=== PATIENT | male | born 1955 | race African-American/Black ===

== ENCOUNTER 2020-05-28 11:02 | Inpatient (IN) | payer OTHER ==
[~2020-05-28] VITALS: Ht 170.2 cm; Wt 67.7 kg
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
[2020-05-28 11:13] VITALS: BP 44/26
[2020-05-28 11:57] LABS: HEMOGLOBIN 12.4 gm/dL (14.0-18.0); MCHC 31.9 g/dL (28.0-37.0); MCV 106.6 fL (80.0-100.0); PLATELET COUNT 125 thou/uL (150-400); RBC 3.66 mil/uL (4.50-6.00); RDW 14.8 % (10.5-14.5); WBC 19.3 thou/uL (4.0-11.0)
[2020-05-28 12:01] LABS: URINE BLOOD 3+ (Negative); URINE CLARITY CLOUDY; URINE COLOR BROWN; URINE GLUCOSE-RANDOM* NEGATIVE (Negative); URINE KETONES NEGATIVE (Negative); URINE LEUKOCYTES-REFLEX TRACE (Negative); URINE NITRITE-REFLEX POSITIVE (Negative); URINE PROTEIN (DIPSTICK) 2+ (Negative); URINE SPECIFIC GRAVITY >= 1.030 (1.005-1.035)
[2020-05-28 12:06] LABS: ICTOTEST (BILI CONFIRMATORY) Negative (Negative); URINE BILIRUBIN NEGATIVE (Negative)
[2020-05-28 12:08] LABS: CREATININE 2.4 mg/dL (0.7-1.3); POTASSIUM 4.7 mmol/L (3.5-5.1)
[2020-05-28 12:13] LABS: AMP/METHAMP Negative (Negative); BARBITURATES Negative (Negative); BENZODIAZEPINES Negative (Negative); COCAINE Negative (Negative); METHADONE Negative (Negative); OPIATES Negative (Negative); PCP POSITIVE (Negative)
[2020-05-28 12:14] LABS: AMORPHOUS URATES Many /LPF (None Seen); CASTS None Seen /LPF (None Seen); SQUAMOUS None Seen /LPF (0-3); URINE RBC 3-10 Few /HPF (0-2); URINE WBC-REFLEX 0-5 Rare /HPF (0-5)
[2020-05-28 12:15] LABS: ALBUMIN 2.3 g/dL (3.4-5.0); TOTAL BILIRUBIN 1.7 mg/dL (0.2-1.0); TOTAL PROTEIN 7.2 g/dL (6.4-8.2); TROPONIN-I 0.24 ng/mL (<0.06)
[2020-05-28 12:28] LABS: ABSOLUTE NEUTROPHILS 17.4 thou/uL (1.4-8.2); ANISOCYTOSIS 1+; PLATELET ESTIMATE NORMAL
[2020-05-28 12:29] LABS: APTT 32.7 Seconds (24.5-32.8); INR 1.9; PROTIME 19.5 Seconds (9.3-11.4)
--- NOTE | 2020-05-28 14:15 | NUR ---
CONSULTED TO PLACE A STAT CENTRAL LINE FOR A PATIENT IN ER WITH SEVERE HYPOTHERMIA. ORDER NOTED AND CONSENT WAS PER MEDICAL NECESSITY. THE RIGHT JUGULAR WAS WIDLEY PATENT. A #6F TRIPLE LUMEN CENTRAL LINE WAS PLACED PER HOSPITAL POLICY AFTER A BEDSIDE TIMEOUT WAS COMPLETED. THE LINE ADVANCED WITHOUT DIFFICULTY. A STAT CHEST XRAY CONFIRMED LINE IN APPROPRIATE POSITION FOR USE. LINE BLEEDING AT SITE, DRESSING CHANGED AND PRESSURE HELD X2
[2020-05-29 04:26] LABS: ALBUMIN 2.2 g/dL (3.4-5.0); CALCIUM 8.1 mg/dL (8.5-10.1); CREATININE 2.3 mg/dL (0.7-1.3); POTASSIUM 5.1 mmol/L (3.5-5.1); TOTAL BILIRUBIN 1.6 mg/dL (0.2-1.0); TOTAL PROTEIN 6.4 g/dL (6.4-8.2)
[2020-05-29 04:30] LABS: HEMATOCRIT 37.6 % (42.0-52.0); HEMOGLOBIN 12.3 gm/dL (14.0-18.0); MCH 34.4 pg (26.0-34.0); MCHC 32.7 g/dL (28.0-37.0); MCV 105.3 fL (80.0-100.0); RBC 3.57 mil/uL (4.50-6.00); RDW 14.8 % (10.5-14.5); WBC 13.3 thou/uL (4.0-11.0)
--- NOTE | 2020-05-29 13:28 | NUR ---
PT DISCONTINUED CENTRAL LINE
--- NOTE | 2020-05-29 18:06 | NUR ---
REPORT ATTEMPTED, NO ANSWER IN CCU
--- NOTE | 2020-05-29 18:17 | NUR ---
SECOND CALL TO GIVE REPORT, NO ANSWER
[2020-05-29 20:48] VITALS: BP 146/114
[2020-05-30] VITALS (7 sets, daily range): BP systolic 110–126; BP diastolic 57–86
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
[2020-05-30 06:27] LABS: CALCIUM 8.2 mg/dL (8.5-10.1); CREATININE 2.7 mg/dL (0.7-1.3); POTASSIUM 5.2 mmol/L (3.5-5.1)
--- NOTE | 2020-05-30 07:31 | EKG ---
[facility] [place] [address] ELECTROCARDIOGRAM REPORT Name: CHANTAL LORENZANA Room #: 204-P ADM IN M.R.#: [id number] Admission: 05/28/20 Attend Phys: Lexii Ybarra MD Discharge: Date of : 51 Report #: [id number] THIS REPORT FOR: cc: FLORY - Gina family physician/PCP FLORY - Gina family physician/PCP Moe Doran MD [facility] THIS REPORT FOR: //name// [facility] ED Test Date: 2020-05-28 Test Time: 11:20:39 Pat Name: CHANTAL LORENZANA Department: Room: [facility] Gender: M Pharmaceutical Scientist: [facility] : 1955 Requested By: Jose Alberto Rios Order Number: [id number] MD: Moe Doran Measurements Intervals [place] Rate: 120 P: OR: QRS: -38 QRSD: 114 T: 6 QT: 292 QTc: 413 Interpretive Statements Artifact, suspect NSR Low voltage, extremity leads Artifact in lead(s) I,II,III,aVL,V1,V2,V3,V4,V5,V6 No previous ECG available for comparison Electronically Signed On 05-30-2020 7:31:18 RIBBON BLOCKMAKER by Moe Doran [email or web address] <ELECTRONICALLY SIGNED> By: Moe Doran MD, FACC 05/30/20 0731 1120 1120 Moe Doran MD, FAC /EPI
--- NOTE | 2020-05-30 07:32 | EKG ---
[facility] [place] [address] ELECTROCARDIOGRAM REPORT Name: CHANTAL LORENZANA Room #: 204-P ADM IN M.R.#: [id number] Admission: 05/28/20 Attend Phys: Lexii Ybarra MD Discharge: Date of : 51 Report #: [id number] THIS REPORT FOR: cc: FLORY Fuentes family physician/PCP FLORY - Gina family physician/PCP Moe Doran MD [facility] ~ THIS REPORT FOR: //name// [facility] ED Test Date: 2020-05-28 Test Time: 15:11:08 Pat Name: CHANTAL LORENZANA Department: Room: [facility] Gender: M Chef De Partie[facility] 1955 Requested By: Jose Alberto Rios Order Number: [id number] MD: Moe Doran Measurements Intervals [place] Rate: 72 P: -4 DE: 197 QRS: 164 QRSD: 95 T: 36 QT: 460 QTc: 504 Interpretive Statements Sinus rhythm Paired ventricular premature complexes Aberrant conduction of SV complex(es) Low voltage, extremity leads Nonspecific T abnrm, anterolateral leads Compared to ECG 05/28/2020 11:20:39 Ventricular premature complex(es) now present ST (T wave) deviation now present Atrial fibrillation no longer present Incomplete right bundle-branch block no longer present Electronically Signed On 05-30-2020 7:32:10 SENIOR IT RECRUITER by Moe Doran [email or web address] <ELECTRONICALLY SIGNED> By: Moe Doran MD, [facility] 05/30/20 0732 10 10 Moe Doran MD, [facility] /EPI
--- NOTE | 2020-05-30 10:28 | NUR ---
Patient admits with AMS. He has hx of substance abuse per RN. Patient mumbles. He is being placed in enhanced isolation for COVID testing. No family numbers to contact. Patient may reside with brother. Casemgt following. Will complete assessment when patient more coherant.
[2020-05-30 11:57] LABS: HEMATOCRIT 39.3 % (42.0-52.0); HEMOGLOBIN 12.3 gm/dL (14.0-18.0); MCH 34.1 pg (26.0-34.0); MCHC 31.4 g/dL (28.0-37.0); MCV 108.6 fL (80.0-100.0); RBC 3.62 mil/uL (4.50-6.00); RDW 15.3 % (10.5-14.5); WBC 19.1 thou/uL (4.0-11.0)
--- NOTE | 2020-05-30 20:36 | NUR ---
RECEIVED PT'S CARE AROUND 729; PT. ON BED; DROWSY; SR-ST ON THE MONITOR; EQUAL CHEST RISING NOTICED; CRACKLS NOTICED WITHOUT STHESTOCOPE; DURING AM ASSESSESMENT PT. AROUSABLE TO PAIN; ALERT TO PERSON; 02 SAT ABOVE 90%; RR 20; PHYSICIAN NOTIFIED DURING AM; ORDERS RECEIVED; COVID ISOLATED; WET ROOM SUPERVISOR NOTIFIED; CHARGE NOTIFIED; MRSA AND COVID SAMPLE OBTAINED; URINE SAMPLE OBTAINED; THROUGH THE AFTERNOON AWAKE; ALERT TO PERSON; REQUESTED SOMETHING TO DRINK AND EAT; PER NURSE AID REPORT PT. NOT ABLE TO EAT FOOD DUE TO CONSISTENCY; PHYSICIAN NOTIFIED; ORDERS RECEIVED; DURING THE EVENING PT. AWAKE; ALERT TO PERSON; ABLE TO ATE DINNER AFTER FIXING TRAY; COVID NEGATIVE; INFECTIONS DISEASE NURSE NOTIFIED; PHYSICIAN NOTIFIED; INCONTINENT OF STOOLS; AT SHIFT CHANGE PT. AWAKE; TRYING TO GET OUT FROM BED; ST. NEEDS TO LEAVE; EDUCATED ABOUT PLACE; UPSET; ASSESSMENT CHARGED; FOLLOWING POC; PASSED ON REPORT;
[2020-05-31] VITALS (9 sets, daily range): BP systolic 99–141; BP diastolic 65–99
--- NOTE | 2020-05-31 04:46 | NUR ---
PT CONFUSED AND TRYING TO LEAVE AT BEGINNING OF SHIFT, REORIENTED PT AND HE WAS ABLE TO STATE HIS NAME, REPOSITIONED NEEDED, INCONT OF STOOL SEVERAL TIMES THRU THE NOC, NPO FOR US OF ABD THIS AM, NO C/O PAIN, VSS, WILL CON'T TO MONITOR PER PPOC.
[2020-05-31 05:34] LABS: ALBUMIN 1.8 g/dL (3.4-5.0); CALCIUM 7.6 mg/dL (8.5-10.1); CREATININE 3.3 mg/dL (0.7-1.3); PHOSPHORUS 4.7 mg/dL (2.5-4.9); POTASSIUM 4.5 mmol/L (3.5-5.1)
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
[2020-05-31 09:03] LABS: HEMOGLOBIN 11.1 gm/dL (14.0-18.0)
[2020-05-31 09:05] LABS: HEMATOCRIT 34.2 % (42.0-52.0); MCH 34.7 pg (26.0-34.0); MCHC 32.5 g/dL (28.0-37.0); MCV 106.6 fL (80.0-100.0); RBC 3.21 mil/uL (4.50-6.00); RDW 14.8 % (10.5-14.5); WBC 18.1 thou/uL (4.0-11.0)
--- NOTE | 2020-05-31 09:43 | 2DMMODE ---
[facility] [address] [place] [address] 2 D/M-MODE ECHOCARDIOGRAM Name: CHANTAL LORENZANA Room #: 204-P ADM IN M.R.#: [id number] Admission: 05/28/20 Attend Phys: Lexii Ybarra MD Discharge: Date of : 53 Report #: [id number] THIS REPORT FOR: cc: FAM - No family physician/PCP FAM - No family physician/PCP Moustapha Wilkins MD ~ APPROVED REPORT Study performed: 05/31/2020 08:15:18 EXAM: Comprehensive 2D, Doppler, and color-flow Echocardiogram Patient Location: Bedside Room #: 204 Status: routine BSA: 1.82 HR: 84 bpm BP: 137/99 mmHg Rhythm: NSR Other Information Study Quality: Good Indications Elevated Troponin Mental status change. Echo Enhancing Agent Indication: Rule out Shunt Agent(s) / Amount(s) Used: Agitated Saline 7 cc 2D Dimensions RVDd: 36.44 mm IVSd: 11.92 (7-11mm) LVOT Diam: 17.41 (18-24mm) LVDd: 52.90 mm PWd: 9.87 (7-11mm) Ascending Ao: 29.54 (22-36mm) LVDs: 52.99 (25-40mm) Aortic Root: 26.95 mm IVC: 24.00 mm Volumes Left Atrial Volume (Systole) Single Plane 4CH: 63.71 mL Single Plane 2CH: 73.08 mL LA ESV Index: 43.00 mL/m2 Aortic Valve [facility] [address] [place] [address] 2 D/M-MODE ECHOCARDIOGRAM Name: SALOMÓNCHANTAL Room #: 204-P ADM IN M.R.#: [id number] Admission: 05/28/20 Attend Phys: Rodriguez Pereira Discharge: Date of : 51 Report #: [id number] LVOT Max P.91 mmHg LVOT Max V: 0.69 m/s Mitral Valve E/A Ratio: 2.6 MV Decel. Time: 141.59 ms MV E Max Pedrito.: 1.00 m/s MV A Pedrito.: 0.38 m/s MV PHT: 41.06 ms IVRT: 101.50 ms Pulmonary Valve PV Peak Pedrito.: 0.75 m/s PV Peak Gr.: 2.23 mmHg Pulmonary Vein P Vein S: 0.33 m/s P Vein A: 0.18 m/s P Vein D: 0.63 m/s P Vein A Dur.: 106.1 msec P Vein S/D Ratio: 0.52 Tricuspid Valve TR Peak Pedrito.: 3.30 m/s TR Peak Gr.: 43.66 mmHg PA Pressure: 59.00 mmHg Left Ventricle The left ventricle is normal size. There is severe global hypokinesis of the left ventricle. There is normal left ventricular wall thickness. Left ventricular systolic function is severely decreased. The apical thrombus is large. LVEF is 10%. Grade IV - fixed restrictive diastolic dysfunction. Right Ventricle The right ventricle is normal size. Right ventricle is mildly hypokinetic. Atria Left atrium is dilated. Interatrial septum is intact without evidence of ASD or PFO. Right atrium is dilated. Aortic Valve The aortic valve is normal in structure. Trace aortic regurgitation. Possible vegetation. There is no aortic valvular stenosis. Mitral Valve The mitral valve is normal in structure. Mitral valve leaflets are thickened. Moderate to severe mitral regurgitation No evidence of [facility] [address] [place] [address] 2 D/M-MODE ECHOCARDIOGRAM Name: CHANTAL LORENZANA Room #: 204-P ADM IN .R.#: [id number] Admission: 05/28/20 Attend Phys: Rodriguez Pereira Discharge: Date of : 51 Report #: [id number] mitral valve stenosis. Tricuspid Valve The tricuspid valve is normal in structure. There is moderate tricuspid regurgitation. Estimated PAP 59 mmHg. There is moderate pulmonary hypertension. Pulmonic Valve The pulmonary valve is normal in structure. Mild to moderate pulmonic regurgitation. Great Vessels The aortic root is normal in size. The ascending aorta is normal in size. The inferior vena cava is dilated with no inspiratory collapse. Pericardium There is no pericardial effusion. Large pleural effusion. <Conclusion> The left ventricle is normal size. Left ventricular systolic function is severely decreased. LVEF is 10%. There is severe global hypokinesis of the left ventricle. The apical thrombus is large. Left atrium is dilated. Interatrial septum is intact without evidence of ASD or PFO. Right atrium is dilated. The aortic valve is normal in structure. Trace aortic regurgitation. Possible vegetation. The mitral valve is normal in structure. Mitral valve leaflets are thickened. Moderate to severe mitral regurgitation The tricuspid valve is normal in structure. There is moderate tricuspid regurgitation. Estimated PAP 59 mmHg. There is moderate pulmonary hypertension. The pulmonary valve is normal in structure. Mild to moderate pulmonic regurgitation. [facility] [place] [address] 2 D/M-MODE ECHOCARDIOGRAM Name: CHANTAL LORENZANA Room #: 204-P ADM IN M.R.#: [id number] Admission: 05/28/20 Attend Phys: Rodriguez Pereira Discharge: Date of : 51 Report #: [id number] There is no pericardial effusion. Large pleural effusion. <ELECTRONICALLY SIGNED> By: Moustapha Wilkins MD 05/31/2043 2 2 Moustapha Wilkins MD /INF
--- NOTE | 2020-05-31 10:42 | NUR ---
Patient more alert today. Reports he lives with brother at [address] with [address] He does not have anyones phone number to call. no cell phone. Patient found wandering in yards.
[2020-05-31 16:04] LABS: MACROCYTES 2+
[2020-05-31 16:05] LABS: PLATELET COUNT 28 thou/uL (150-400)
--- NOTE | 2020-05-31 20:03 | NUR ---
ASSUMED CARE OF PT AT SHIFT CHANGE. ASSESSMENTS CHARTED. MEDS GIVEN PER AUG. PT ALERT TO SELF, CONFUSED, IMPULSIVE. NO C/O PAIN, VSS. PULLED OUT MENG AND IV. BED ALARM ON. IV TEAM PUT IN TWO NEW IVS. WILL CONTINUE TO MONITOR AND FOLLOW POC.
[2020-06-01 04:43] VITALS: BP 122/66
[2020-06-01 07:30] VITALS: BP 115/79
--- NOTE | 2020-06-01 07:51 | NUR ---
this shift started with this patient being very confused, delusional and impulsive. patient was assessed and had a bath and linen change. patient at the end of this shift pulled out his iv and may need a picc placed were he will be unable to pull it out. the bed is in a low and locked position
--- NOTE | 2020-06-01 09:34 | NUR ---
BPCI LETTER ISSUED TO PATIENT IN CONJUNCTION WITH ADMISSION PACKET GIVEN BY REGISTRATION
[2020-06-01 09:52] LABS: ALBUMIN 1.9 g/dL (3.4-5.0); CREATININE 3.4 mg/dL (0.7-1.3); PHOSPHORUS 4.2 mg/dL (2.5-4.9); POTASSIUM 4.8 mmol/L (3.5-5.1)
[2020-06-01 11:37] VITALS: BP 109/78
[2020-06-01 15:35] VITALS: BP 125/66
--- NOTE | 2020-06-01 16:10 | NUR ---
PT ALERT TO SELF WITH CONFUSION. PRN ANXIETY MED GIVEN WITH PARTIAL RELIEF. SEEN BY DR. VALENZUELA. NEW ORDERS NOTED. FALL PRECAUTION IN PLACE. NO CONCERNS AT THIS TIME.
[2020-06-01 16:18] LABS: HEMATOCRIT 34.8 % (42.0-52.0); HEMOGLOBIN 11.2 gm/dL (14.0-18.0); MCH 34.2 pg (26.0-34.0); MCHC 32.2 g/dL (28.0-37.0); MCV 106.3 fL (80.0-100.0); RBC 3.27 mil/uL (4.50-6.00); WBC 12.8 thou/uL (4.0-11.0)
[2020-06-01 16:22] LABS: CALCIUM 8.1 mg/dL (8.5-10.1); CREATININE 3.5 mg/dL (0.7-1.3)
[2020-06-01 16:30] LABS: ALBUMIN 1.7 g/dL (3.4-5.0); DIRECT BILIRUBIN 0.6 mg/dL (<0.1-0.2); TOTAL BILIRUBIN 0.7 mg/dL (0.2-1.0); TOTAL PROTEIN 5.5 g/dL (6.4-8.2)
[2020-06-01 19:30] VITALS: BP 92/70
[2020-06-02 03:50] VITALS: BP 145/88
--- NOTE | 2020-06-02 06:04 | NUR ---
PATIENT IS ALERT TO SELF, CONFUSED. FALL PRECAUTIONS ARE IN PLACE. INCONTINENT OF URINE AND BOWEL. HAS URINAL AT THE BEDSIDE. DOES NOT FOLLOW DEMANDS. REMOVED HIS NC MULTIPLE TIMES THROUGHOUT THE NIGHT. CONTINUING TO ASSES ACCORDING TO POC.
[2020-06-02 06:52] LABS: ALBUMIN 1.9 g/dL (3.4-5.0); CALCIUM 7.9 mg/dL (8.5-10.1); CREATININE 3.6 mg/dL (0.7-1.3); PHOSPHORUS 4.1 mg/dL (2.5-4.9); POTASSIUM 4.6 mmol/L (3.5-5.1)
--- NOTE | 2020-06-02 07:29 | NUR ---
0620 PATIENT MORE AGITATED AND MOVING LEGS OUT OF BED. INCONTINENT. YELLING OUT AND REMAINS DISORIENTED TO SELF. OLANZAPNE GIVEN IM. 0700 PATIENT RESTING IN BED TALKING QUIETLY AT PRESENT TIME.
[2020-06-02 07:47] VITALS: BP 151/92; BP 151/921
[2020-06-02 08:07] LABS: HAV IgM AB (ANTI-HAV IgM) Negative (Negative); HEPATITIS B SURFACE AG Negative (Negative); HEPATITIS C VIRUS AB >11.0 (0.0-0.9); HIV ANTIBODY Non Reactive (Non Reactive)
--- NOTE | 2020-06-02 14:15 | NUR ---
Patient yesterday told jobmgt he has 2 children a boy and girl ages 6,7. They live with their mom Ronak Yang. Sp with [facility] today and no missing person report. Sp with [facility] for apt complex. They report they do not have apts numbered. So #3 inaccurate. They do not have a Dani or Benitez (brother) living in complex. Sp with [facility] no missing report noted. [facility] will inquire into [address] [place] [address] if resident knows patient or relation. Casemgt following.
[2020-06-02 15:45] VITALS: BP 148/79
--- NOTE | 2020-06-02 17:54 | NUR ---
ASSESSMENT CHARTED. PT ALERT AND ORIENTED TO SELF. PRN RT TREATMENT GIVEN. IMPULSIVE WITH CARES. FALL PRECAUTION IN PLACE. VERY RESTLESS.
[2020-06-02 18:04] VITALS: BP 138/78
[2020-06-02 20:07] VITALS: BP 147/101
[2020-06-03 03:49] VITALS: BP 150/87
--- NOTE | 2020-06-03 06:10 | NUR ---
PT ALERT AND ORIENTED TO SELF. INCONTINENT OF BOWEL AND BLADDER. DENIES PAIN. ASSESSMENTS DOCUMENTED. PERIODIC EPISODE OF NSVT. WILL BRING TO CARDIOLOGY ATTENTION. NO ANY OTHER CONCERNS. WILL CONTINUE TO MONITOR.
[2020-06-03 07:45] VITALS: BP 143/69
--- NOTE | 2020-06-03 10:32 | NUR ---
WOUND CARE F/U; THE PATIENT IS UP IN THE CHAIR MOST OF THE TIME. I WAS NOT ABLE TO ASSESS THE [place] AREAS. THE WOUND UNDER THE NOSE IS STABLE AND DRY. THERE IS NO S/S OF INFECTION. NO CHANGES AT THIS TIME.
[2020-06-03 11:45] VITALS: BP 148/91
[2020-06-03 15:25] VITALS: BP 142/75
--- NOTE | 2020-06-03 16:11 | NUR ---
PT ALERT TO SELF. VERY RESTLESS THIS SHIFT. NEEDED NUMEROUS VERBAL PROMPT NOT TO TRANSFER HIMSELF. APPETITE GOOD. FALL PRECAUTION IN PLACE. NO CONCERNS AT THIS TIME.
--- NOTE | 2020-06-03 16:52 | NUR ---
patient is not in [employer] or [employer] system. Left message with Earnest. He is not in [employer] system. Left message with Azar. Patient filled a prescription at [facility] Apr 04 2020. He is allergic to pencillin. Updated RN Phys who prescribed is Dr Yvon Addison. Number listed for office not a working number.
[2020-06-03 19:40] VITALS: BP 154/64
[2020-06-04 03:50] VITALS: BP 126/83
[2020-06-04 03:51] LABS: ABSOLUTE NEUTROPHILS 10.3 thou/uL (1.4-8.2); BASOPHILS 0.3 % (0.0-2.0); EOSINOPHILS 0.1 % (0.0-3.0); HEMOGLOBIN 11.3 gm/dL (14.0-18.0); LYMPHOCYTES 7.5 % (24.0-44.0); MCH 33.8 pg (26.0-34.0); MCHC 32.2 g/dL (28.0-37.0); MCV 104.9 fL (80.0-100.0); MONOCYTES 5.5 % (1.0-8.0); PLATELET COUNT 42 thou/uL (150-400); POLYS 86.6 % (36.0-66.0); RBC 3.34 mil/uL (4.50-6.00); RDW 15.1 % (10.5-14.5); WBC 11.9 thou/uL (4.0-11.0)
[2020-06-04 04:11] LABS: CALCIUM 9.1 mg/dL (8.5-10.1); CREATININE 3.5 mg/dL (0.7-1.3); TOTAL BILIRUBIN 0.9 mg/dL (0.2-1.0); TOTAL PROTEIN 6.6 g/dL (6.4-8.2)
--- NOTE | 2020-06-04 04:16 | NUR ---
PT REMAINS CONFUSED. ORIENTED TO SELF. INCONTINENT. NO EVENTS OVERNIGHT. DENIES PAIN. VITALS STABLE. WILL CONTINUE TO MONITOR.
[2020-06-04 07:50] VITALS: BP 122/84
[2020-06-04 11:40] VITALS: BP 125/95
[2020-06-04 15:30] VITALS: BP 155/70
--- NOTE | 2020-06-04 17:45 | NUR ---
TYPICAL DAY FOR THIS UNFORTUNATE PATIENT. NSR PER TELE. DENIES CP, SOA. APPETITE BRISK. DENIES PAIN. MEDICATED ORDERED. FALL PRECAUTIONS IN PLACE; WILL CONTINUE TO FOLLOW.
[2020-06-04 20:00] VITALS: BP 138/59
[2020-06-05 04:20] VITALS: BP 105/83
[2020-06-05 04:38] LABS: CALCIUM 8.8 mg/dL (8.5-10.1); CREATININE 3.3 mg/dL (0.7-1.3); MAGNESIUM 2.1 mg/dL (1.8-2.4); PHOSPHORUS 4.4 mg/dL (2.5-4.9); TOTAL BILIRUBIN 0.8 mg/dL (0.2-1.0); TOTAL PROTEIN 6.8 g/dL (6.4-8.2)
--- NOTE | 2020-06-05 04:43 | NUR ---
PT REMAINS CONFUSED. INCONTINENT OF BOTH BOWEL AND BLADDER. OLANZAPINE STARTED LAST NIGHT. PT WAS ABLE TO REST FOR MOST OF THE NIGHT. NO NEW C/O. DENIES CHEST PAIN, NAUSEA VOMITING. WILL CONTINUE TO MONITOR.
[2020-06-05 07:50] VITALS: BP 137/84
[2020-06-05 11:30] VITALS: BP 152/96
[2020-06-05 17:10] VITALS: BP 161/72
--- NOTE | 2020-06-05 18:11 | NUR ---
TYPICAL DAY FOR THIS CONFUSED, INCONTINENT PATIENT. CAN BE BRIBED TO COOPERATE WITH COKE. WILL NOT LEAVE HIS TELE IN PLACE. PACED PER TELE WHEN ABLE TO OBTAIN. INCONTINENT OF URINE AND STOOL THIS SHIFT. FALL PRECAUTIONS IN PLACE; WILL CONTINUE TO FOLLOW.
[2020-06-05 20:15] VITALS: BP 93/76
--- NOTE | 2020-06-06 04:11 | NUR ---
Assumed pt care at 1900. Pt is alert but confused. Pt continues to yell through the night. Fall precaution in place. No sign of acute distress noted. Pt is noted to be incontinent. Assessment completed and documented. Scheduled meds administered to pt. Tolerated PO intake. Pt is stable. No acute events overnight. Continue to monitor. No further needs at this time.
[2020-06-06 06:03] VITALS: BP 142/80
[2020-06-06 08:00] VITALS: BP 142/80
[2020-06-06 08:05] VITALS: BP 124/79
[2020-06-06 11:00] VITALS: BP 106/87
[2020-06-06 15:22] LABS: ABSOLUTE NEUTROPHILS 9.8 thou/uL (1.4-8.2); BASOPHILS 0.2 % (0.0-2.0); EOSINOPHILS 0.5 % (0.0-3.0); HEMATOCRIT 34.5 % (42.0-52.0); HEMOGLOBIN 11.1 gm/dL (14.0-18.0); LYMPHOCYTES 5.4 % (24.0-44.0); MCH 33.9 pg (26.0-34.0); MCHC 32.1 g/dL (28.0-37.0); MCV 105.6 fL (80.0-100.0); MONOCYTES 6.6 % (1.0-8.0); POLYS 87.3 % (36.0-66.0); RBC 3.27 mil/uL (4.50-6.00); RDW 15.2 % (10.5-14.5); WBC 11.3 thou/uL (4.0-11.0)
[2020-06-06 15:28] LABS: CALCIUM 8.4 mg/dL (8.5-10.1); POTASSIUM 3.5 mmol/L (3.5-5.1)
[2020-06-06 15:49] LABS: PLATELET COUNT 54 thou/uL (150-400)
[2020-06-06 15:54] LABS: INR 1.3; PROTIME 13.1 Seconds (9.3-11.4)
--- NOTE | 2020-06-06 15:57 | NUR ---
PT ONLY ORIENTED TO SELF, OFTEN CALLS OUT, LOUD CURSE WORDS, NOT PHYSICALLY VIOLENT THOUGH, ASK FOR A CIGARETTE, PT GAVE AN ADDRESS FOR BROTHER "CHARLES LORENZANA" CM AWARE AND WILL SEND POLICE TO SEE IF HE LIVES THERE, DR AREVALO CAME BY BUT NEEDS DPOA, PT URINATES ON THE FLOOR AND INCONTINENT OF STOOL, EATS AND DRINKS ADEQUATELY. CONTINUES TO REMOVE OWN TELE
--- NOTE | 2020-06-06 16:14 | NUR ---
Rec medical records from [facility]. ED visits, infomation placed on chart. Requested face sheet be sent. Patient reports he lives at [address] and has a brother Johnie. He is tearful today over of another brother.
[2020-06-06 19:34] VITALS: BP 141/76
[2020-06-06 22:06] LABS: SYPHILIS AB Non Reactive (Non Reactive)
--- NOTE | 2020-06-06 22:11 | NUR ---
2145 ASSUMED CARE OF PT AFTER ARRIVAL TO FLOOR, PT ORIENTED TO PERSON ONLY AT THIS TIME AND IS CALLING OUT LOUDLY ABOUT DEMONS. BASELINE ASSESSMENT COMPLETED, PT REFUSING SCDS, FALL PRECAUTIONS IN PLACE AND PT IS PLACED NEAR NURSES STATION SECONDARY TO CONFUSION AND REPORTED ATTEMPTS TO LEAVE BED BY PREVIOUS NURSE
--- NOTE | 2020-06-07 07:03 | NUR ---
pt has settled and is resting quietly with eyes closed. After Haldol, pt allowed us to change bed and was singing to us.
[2020-06-07 08:18] VITALS: BP 98/59
[2020-06-07 14:08] LABS: ANA INTERPRETATION Negative (Negative)
[2020-06-07 16:34] VITALS: BP 132/70
--- NOTE | 2020-06-07 17:08 | NUR ---
Rec face sheet from [facility]. No emergency contact listed. Address [address] [facility] [address]. Requested [facility] inquire into residence. KC sp with casemgt and reports noone home. He sp with leasing office who reports no record of patient ever being a tenant at residence or past or present. Elderly woman lives apt alone.
--- NOTE | 2020-06-07 19:05 | NUR ---
PT IS AOX1, VSS, SLEPT MOST OF DAY. PT WILL REFUSE PO MEDS SOMETIMES. PT CURRENTLY RESTING IN BED. CALL LIGHT IN REACH, WILL CONTINUE TO MONITOR.
[2020-06-07 19:29] VITALS: BP 135/75
--- NOTE | 2020-06-08 03:35 | NUR ---
ASSUMED CARE OF PT AT 1900. PT IS A/O TO PERSON AND IS CONFUSED. PT HALLUCINATING THAT THERE ARE OTHER PEOPLE IN HIS ROOM AND WILL AT TIMES YELL OUT TO THE DELUSION. PRN ANXIETY MEDICATION GIVEN AT HS. PT IS SOA WITH EXERTION. IS IMPULSIVE AT TIMES. INCONTINENT AT TIMES WITH BOTH BOWEL AND BLADDER. USES A URINAL AT TIMES. C/O THAT HE WAS COLD THIS EVENING. BLANKETS PROVIDED AND THERMOSTAT ADJUSTED TO LEVEL OF COMFORT. VSS. SNACKS PROVIDED AT HS. AT THIS TIME PT IS LYING IN HIS BED AND APPEARS TO BE SLEEPING. FALL PRECAUTIONS ARE IN PLACE, CALL LIGHT IS WITHIN REACH. WILL CONTINUE TO MONITOR.
[2020-06-08 04:16] VITALS: BP 132/67
[2020-06-08 07:40] VITALS: BP 130/75
[2020-06-08 15:40] VITALS: BP 143/75
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
--- NOTE | 2020-06-08 18:17 | NUR ---
PT AOX1-2, SLEPT MOST OF THE DAY. FOLLOWS COMMANDS AT TIMES. INCONTINENT OF B&B, APPETITE GOOD TODAY. FALL PRECAUTIONS IN PLACE. WILL CONTINUE TO MONITOR FOR SAFETY.
[2020-06-08 19:14] VITALS: BP 137/88
--- NOTE | 2020-06-09 02:42 | NUR ---
ASSUMED PT CARE AT SHIFT CHANGE FROM DAMIR (LYNN-RN). PT IS ALERT TO SELF. PT'S VSS. NO IV IS SPRESENT. PT TAKES MEDICATION WHOLE. PT IS INCONTINENT B&B. PT URINATED ON THE FLOOR. PT DOES NOT CALL OUT APPROPRIATELY. PT IS IMPULSIVE BUT EASILY RE DIRECTABLE. PT YELLS OUT INTO THE HALLWAY. PT IS SLEEPING IN HIS ROOM. HOURLY ROUNDS DONE ON PT. WILL CONTINUE TO MONITOR.
[2020-06-09 04:21] VITALS: BP 157/96
--- NOTE | 2020-06-09 05:18 | NUR ---
I HAVE REVIEWED THE DOCUMENTATION BY EMILY MALONEY LPN AND I CONCUR WITH THE REASSESSMENT.
[2020-06-09 08:02] VITALS: BP 140/83
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
--- NOTE | 2020-06-09 16:11 | NUR ---
ON-GOING ASSESSMENT: CM REVIEWED CHART AND SPOKE WITH ATTENDING. PT REMAINS IN ENHANCED ISOLATION DUE TO COVID 19. SYED SPOKE WITH PATIENTS SISTER GISSELL WHO REPORTS SHE DOES NOT WANT PATIENT RETURNING AT ALL TO [facility] AND HAD A TERRIBLE EXPERIENCE BUT WOULD LIKE HIM TO GO SOMEWHERE FOR REHAB/SNF IF HE IS ABLE TO GET ANY STRONGER OR TOLERATE SNF. SHE STATES SHE WOULD LIKE TO TALK TO PHYSICIAN TO SEE IF HE IS A CANIDATE FOR SNF. SHE REPORTS IF PATIENT IS NEEDING HOSPICE HE LIVES ALONE AND SOMEONE IS NOT ABLE TO BE THERE WITH HIM 21/01. SHE REPORTS SHE IS UNSURE HIS CONDITION OR HOW SERIOUS IT IS IF HE NEEDS HOSPICE OR CAN DO SNF. SHE REQUEST TO SPEAK WITH DR. ALTAMIRANO. CM RELAYED INFORMATION AND CONTACT FOR PTS SISTER TO DR. ALTAMIRANO FOR HER TO CONTACT HER. SHE REPORTS IF HE IS A CANIDATE FOR SNF SHE [facility] AND [facility] CONSIDER [facility]. [facility]ED SPOKE WITH SALLY AT THE [facility] WHO REPORTS THEY DO HAVE A CONTACT WITH [facility] BUT THE [facility] WOULD HAVE TO APPROVE IT FIRST. SHE REQUEST INFORMATION BE FAXED TO THEM FOR REVIEW. CM FAXED CLINICAL TO [facility] [phone] ATTN: TIMI/DYLAN FOR REVIEW. CM ALSO FAXED CLINICAL TO DRESSER AND SPOKE WITH ADMISSIONS WHO STATES THEY WOULD REVIEW CLINICAL AND ARE ACCEPTING COVID POSTIVE RESIDENTS AT THIS TIME. SYED WILL CONTINUE TO FOLLOW.
[2020-06-09 16:14] VITALS: BP 139/98
[2020-06-09 19:15] VITALS: BP 139/87
--- NOTE | 2020-06-09 19:15 | NUR ---
PT IS CONFUSED, YELLS OUT AND SCREAMS. INCONTINENT OF B&B. NO S/S OF DISTRESS, WILL CONTINUE TO MONITOR.
--- NOTE | 2020-06-10 02:55 | NUR ---
ASSUMED PT CARE AT SHIFT CHANGE FROM ROLANDO (DAY-RN). PT IS ALERT TO SELF. NO IV. PT IS INCONTINENT B & B. PT HAS A BM TODAY. PT MOVES CHUCKS AND TRIED TO GET UP WHEN WET. PT TOLERATES ORAL MEDICATION. LORAZEPAM WAS ADMINISTERED IN THE 2 0 CLOCK HOUR PT HAD EDEMA ON HIS BLE AND BODY. PT BECOMES IMPULSIVE TOWARDS THE LATER PART OF THE SHIFT. HOURLY ROUNDS DONE ON PT. WILL CONINUE TO MONOTOR.
[2020-06-10 07:54] VITALS: BP 110/59
--- NOTE | 2020-06-10 10:33 | NUR ---
Assumed care of pt. at 0700. Pt. was calm and cooperative at times. Pt. speech continues to be a barrier as I cannot understand what he is saying at most times. Dr. Ybarra explained he has been cleared medically and requested he be taken off oxygen unless desaturation was seen. Will titrate and post results in notes.
--- NOTE | 2020-06-10 14:06 | NUR ---
Upon group rounds with nursing, MD's and Case Management reviewed this case and will continue to pursue patients prior location living source before entering in the hospital. Current attending spoke with RAILROAD CAR REPAIRMAN and cognos consultant and will be updating orders. Will continue to pursue all avenues of identification of prior living situation as current CM working with Anish Cohn on this case and CM Director working with [facility] team. CM will continue to follow.
[2020-06-10 14:08] LABS: ABSOLUTE NEUTROPHILS 5.5 thou/uL (1.4-8.2); BASOPHILS 0.7 % (0.0-2.0); EOSINOPHILS 0.8 % (0.0-3.0); HEMATOCRIT 33.1 % (42.0-52.0); HEMOGLOBIN 10.8 gm/dL (14.0-18.0); LYMPHOCYTES 10.1 % (24.0-44.0); MCH 34.4 pg (26.0-34.0); MCHC 32.6 g/dL (28.0-37.0); MCV 105.5 fL (80.0-100.0); MONOCYTES 5.3 % (1.0-8.0); POLYS 83.1 % (36.0-66.0); RBC 3.14 mil/uL (4.50-6.00); RDW 15.5 % (10.5-14.5); WBC 6.6 thou/uL (4.0-11.0)
[2020-06-10 14:26] LABS: ALBUMIN 1.8 g/dL (3.4-5.0); CALCIUM 8.3 mg/dL (8.5-10.1); CREATININE 2.4 mg/dL (0.7-1.3); POTASSIUM 3.8 mmol/L (3.5-5.1); TOTAL BILIRUBIN 0.7 mg/dL (0.2-1.0)
[2020-06-10 15:38] LABS: ANISOCYTOSIS 1+; MACROCYTES 1+
[2020-06-10 15:39] LABS: PLATELET COUNT 90 thou/uL (150-400)
[2020-06-10 15:50] VITALS: BP 123/72
--- NOTE | 2020-06-10 18:47 | NUR ---
Assumed care of pt. at 0700. Pt. was calm, but not cooperative at times. Dr. Ybarra requested pt. be titrated off NC oxygen. Pt. was successfully titrated down to no oxygen and O2 Sat. at 9% RA. IV inserted for Dr. Ybarra ordered lasix. Fall precautions in place.
[2020-06-10 20:13] VITALS: BP 121/69
--- NOTE | 2020-06-11 07:57 | NUR ---
I HAVE REVIEWED THE ASSESSMENT DONE BY ARTURO MALONEY LPN, I AGREE.
[2020-06-11 08:05] VITALS: BP 111/67
--- NOTE | 2020-06-11 15:19 | NUR ---
Assumed care of pt. at 0700. Pt. O2 sat. checked and was at 85% on room air. Pt. placed back on 2L O2 w/ NC and returned to 100%, provider aware. Pt. was crying out non-discernable phrases and appeared to be agitated. Pt. urinated over side rail onto the floor. Pt. was cleaned up and bedding changed out. Pt. repeated the same actions approxiamately an hour later. Condom cath attempted, pt. pulled off within 30 minutes. Pt. still able to swallow pills with water. Fall precautions in place.
[2020-06-11 17:01] VITALS: BP 127/88
[2020-06-11 20:09] VITALS: BP 110/72
[2020-06-12 04:25] VITALS: BP 105/59
--- NOTE | 2020-06-12 07:27 | NUR ---
PATIENT ALERT AND ORIENTED X1. 2LNC - NO SOA NOTED. INCONTINENT OF BOWEL AND BLADDER. NO IV ACCESS. HOB UP PER ORDER. POSSIBLE D/C TO [facility] SATURDAY. MEDICATION CRUSHED AND MIXED WITH APPLESAUCE. RESTED QUIETLY DURING THE NIGHT. WILL MONITOR.
[2020-06-12 07:55] VITALS: BP 107/39
[2020-06-12 15:55] VITALS: BP 99/55
[2020-06-12 20:38] VITALS: BP 104/56
--- NOTE | 2020-06-13 04:05 | NUR ---
PATIENT ALERT AND ORIENTED TO SELF ONLY. INCONTINENT OF B/B. 2LNC AT TIMES. REPORTED THAT PATIENT EATS WELL DURING THE DAY, HOWEVER, HE NEEDS A SET-UP. NO VERBAL COMMUNICATION WITH THIS NURSE. PATIENT WILL RESPOND TO HIS NAME WITH SLIGHT EYE CONTACT AT TIMES. POSSIBLE DISCHARGE TO [facility] TODAY. WILL MONITOR.
[2020-06-13 08:31] VITALS: BP 110/66
--- NOTE | 2020-06-13 09:00 | NUR ---
Assumed care of pt. at 0700. Pt. is calm but not cooperative. Pt. continues to try to exit bed. Pt. was found with bed flat and not elevated. HOB immediately elevated. O2 sat. increased from 90% to 93%. Pt. cooperative in taking meds with apple sauce. Fall precautions in place.
[2020-06-13] MEDS ORDERED: PEPCID20 MG PO (11:10)
[2020-06-13] MEDS ORDERED: LORAZEPAM 0.50.5 MG PO (11:10)
[2020-06-13] MEDS ORDERED: ACCUNEB SO1.25 MG/1 INH (11:10)
[2020-06-13] MEDS ORDERED: CARVEDILOL3.125 MG PO (11:10)
[2020-06-13] MEDS ORDERED: DEPAKOTE 250MG250 M1 PO (11:10)
[2020-06-13] MEDS ORDERED: ACETAMINOPHEN325 M1 PO (11:10)
[2020-06-13] MEDS ORDERED: DEMADEX20 MG PO (11:10)
[2020-06-13] MEDS ORDERED: HALOPERIDOL 1 MG1 MG PO ×2 (11:10)
[2020-06-13] MEDS ORDERED: VITAMIN B-1100 M2 PO (11:10)
--- NOTE | 2020-06-13 13:17 | NUR ---
on-going assessment: CM REVIEWED CHART AND SPOKE WITH ATTENDING. PT REMAINS CONFUSED AND UNABLE TO PROVIDE AND NEW INFORMATION FAR FAMILY CONTACTS/ADDRESSES THAT PT LIVED AT. CM HAS BEEN UNSUCCESSFUL IN ATTEMPTED TO FIND ANY FAMILY OR COMMUNITY MEMBERS THAT KNOW ABOUT PATIENT THROUGH WELLNESS CHECKS BY POLICE BY ADDRESSES PREVIOUSLY PROVIDED BY PT. SYED SPOKE WITH ALBACORE FISHING BOAT CREWMAN STACIE WHO REPORTS SHE FOUND A PAPER IN ONE OF PATIENTS POCKETS OF HIS BELONGINGS. ITS A LETTER FROM [facility] THAT TO SEE [place] FOR ALL THE INFO WE CURRENTLY HAVE ON FILE FOR YOU. 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 THIS WAS THEN SIGNED BY JIE CYR CHUCKING LATHE OPERATORHEALTH CARE MARKETING SPECIALIST [phone] ( IT WAS ADDRESSED TO PT AT [address] [facility] [address]. HOWEVER CM PREVIOUSLY CONTACTED [facility] AND THEY STATED PTS NAME WAS UNFAMILIAR. CM LEFT A VM FOR THIS CHUCKING LATHE OPERATOR TO SEE IF THEY HAVE ANY OTHER INFORMATION ON PATIENT. SYED SPOKE WITH ATTENDING WHO REPORTS SHE SPOKE WITH DR. GUILLORY AND PT WILL BE ADMITTED TO [facility]. SYED RECEIVED AN AFFADAVIT FROM DR. ALTAMIRANO WELL DR VALENZUELA AND CM FAXED COPIES OF THESE TO [facility] FAX [phone]. CM ALSO PLACED ON PATIENTS CHART. PLANS ARE FOR PT TO ADMIT TO [facility] TODAY.
--- NOTE | 2020-06-15 07:54 | NUR ---
LATE NOTE: THIS SEWER LINE REPAIRER WAS NOTIFIED ON 06/13/2020 BY MULTIPLE CUT OFF SAW OPERATOR THAT HE NEED A MENTAL HEALTH HOLD NOTARIZED. UPON CHECKING IT WAS ALREADY COMPLETED AND NOTARIZED. SR. BEHAVIORAL HEALTH DOOR SLINGER WAS NOTIFIED.
== END 2020-06-13 14:45 | DRG 871 ==
LOC: ER 11:02 → 4S 14:10 → EROBS 14:10 → 2N 14:10 → 4S 06-06 21:42
PROVIDERS: Hospitalist; Internal Medicine; Internal Medicine Pulmonary Disease; Nurse Practitioner; Psychiatry & Neurology Neuromuscular Medicine; Specialist; ADMIT Hospitalist; ATTEND Hospitalist
PROC: 05HY33Z Insertion of Infusion Device into Upper Vein, Percutaneous Approach (ICD-10-PCS; principal; 2020-05-28)
DX: A41.9 Sepsis, unspecified organism (principal); G92 Toxic encephalopathy; R65.21 Severe sepsis with septic shock; J18.9 Pneumonia, unspecified organism; E43 Unspecified severe protein-calorie malnutrition; J96.01 Acute respiratory failure with hypoxia; I33.0 Acute and subacute infective endocarditis; I50.23 Acute on chronic systolic (congestive) heart failure; R57.1 Hypovolemic shock; I21.A1 Myocardial infarction type 2; M62.82 Rhabdomyolysis; N17.9 Acute kidney failure, unspecified; N39.0 Urinary tract infection, site not specified; D68.9 Coagulation defect, unspecified; R64 Cachexia; J81.1 Chronic pulmonary edema; I13.0 Hypertensive heart and chronic kidney disease with heart failure and stage 1 through stage 4 chronic kidney disease, or unspecified chronic kidney disease; N18.4 Chronic kidney disease, stage 4 (severe); D69.6 Thrombocytopenia, unspecified; Z68.23 Body mass index [BMI] 23.0-23.9, adult; E83.51 Hypocalcemia; R74.01 Elevation of levels of liver transaminase levels; F19.10 Other psychoactive substance abuse, uncomplicated; E87.5 Hyperkalemia; R41.0 Disorientation, unspecified; I49.9 Cardiac arrhythmia, unspecified; I25.5 Ischemic cardiomyopathy; R68.0 Hypothermia, not associated with low environmental temperature; D64.9 Anemia, unspecified; K05.10 Chronic gingivitis, plaque induced; B19.20 Unspecified viral hepatitis C without hepatic coma; I51.3 Intracardiac thrombosis, not elsewhere classified; F20.9 Schizophrenia, unspecified; I49.3 Ventricular premature depolarization; F03.90 Unspecified dementia, unspecified severity, without behavioral disturbance, psychotic disturbance, mood disturbance, and anxiety; Z66 Do not resuscitate; Z51.5 Encounter for palliative care; Z20.828 Contact with and (suspected) exposure to other viral communicable diseases; Z23 Encounter for immunization; Z79.899 Other long term (current) drug therapy
CPT/HCPCS: 10081; 10102

== ENCOUNTER 2020-06-13 12:14 | Inpatient (IN) | payer OTHER ==
[~2020-06-13] VITALS: Ht 167.6 cm; Wt 52.7 kg
[~2020-06-13 12:14] MED LIST: ACCUNEB SO1.25 MG/1 INH; ACETAMINOPHEN325 M1 PO; CARVEDILOL3.125 MG PO; DEMADEX20 MG PO; DEPAKOTE 250MG250 M1 PO; HALOPERIDOL 1 MG1 MG PO; LORAZEPAM 0.50.5 MG PO; PEPCID20 MG PO; VITAMIN B-1100 M2 PO
[2020-06-13 17:09] VITALS: BP 113/50
--- NOTE | 2020-06-13 18:01 | NUR ---
1800 PATIENT NEW ADMIT A TRANSFER FROM 4TH FLOOR PATIENT WAS FOUND IN SOMEONES YARD HIGH ON PCP. PATIENT WAS HYPOTHERMIC CONFUSED AND HAD SEPSIS HE WAS CLEARED TO TRANSFER TO . PATIENT NOW HAS CONFUSION AND IS STILL OUT OF IT AND COULD NOT ANSWER ANY QUESTIONS. I CALLED [facility] TO SEE IF PATIENT HAD BEEN PICKING UP ANY MEDICATION. THEY TOLD ME THAT MARCH 2020 HE ONLY PICKED UP ASPIRIN AND A NICOTENE PATCH HIS OTHER MEDS NOT PICKED UP. DR GUILLORY TALKED TO DR ALTAMIRANO AND ORDERED WHAT HE HAD WHEN ON 4TH FLOOR. PATIENT IS ON FALLS AT THE PRESENT WILL CONTINUE TO MONITOR PATIENT FOR SAFETY AND BEHAVIORS.
[2020-06-13 19:50] VITALS: BP 96/52
--- NOTE | 2020-06-14 06:45 | NUR ---
PT SLEPT ALL NIGHT
[2020-06-14 09:28] VITALS: BP 97/59
[2020-06-14 09:51] VITALS: BP 97/59
--- NOTE | 2020-06-14 09:58 | NUR ---
ASSUMED CARE OF PT. AT 0700 THIS MORNING. PT. IS IN BED. HE IS AWAKE, BUT DOES NOT ANSWER QUESTIONS OR COMMUNICATE WITH STAFF. HE IS NOT FEEDING HIMSELF THIS MORNING. HE DID TAKE HIS MEDICATIONS WITH MUCH ENCOURAGEMENT OF THIS RN.
--- NOTE | 2020-06-14 17:51 | NUR ---
Darin attempted to complete assessment with Pt. However Pt was unable to complete. Darin attempted to wake Pt up, but unable to be roused enough to have any conversation. DARIN was also unsucessful in finding any leads on family or friends of the Pt. DARIN contacted [facility] and was able to obtain Pt's SSN, [id number], however [facility] did not have any emergency contacts listed. DARIN will continue to search for relatives or friends. DARIN will continue to follow
[2020-06-14 20:21] VITALS: BP 95/46
--- NOTE | 2020-06-15 05:17 | NUR ---
ASSUMED CARE ON 06/14/20 @ 1900, IN BED AWAKENED AND GIVEN INCONTINENT CARE, ASSESSMENT NOTED HRRR, LUNGS CTA, ABD N X 4Q. COMPLIANT WITH MEDICATION CRUSHED IN PUDDING, FED THE FULL PUDDING TO PATIENT, WHO ATE WELL. IN BED ASLEEP WITH BED IN LOW POSITION AND BED ALARM SET. WILL CONTINUE TO MONITOR FOR COMFORT AND SAFETY.
[2020-06-15 09:17] VITALS: BP 106/54
[2020-06-15 11:40] LABS: BUN 59 mg/dL (7-18); CALCIUM 9.7 mg/dL (8.5-10.1); CHLORIDE 112 mmol/L (98-107); CREATININE 2.6 mg/dL (0.7-1.3); GLUCOSE 104 mg/dL (74-106)
[2020-06-15 11:48] LABS: SODIUM 161 mmol/L (136-145)
[2020-06-15 11:49] LABS: CO2 > 45 mmol/L (21-32); POTASSIUM 2.9 mmol/L (3.5-5.1)
--- NOTE | 2020-06-15 17:32 | NUR ---
DANIEL called [facility] and requested a phone call back concerning the Pt. SW recieved a PC from Patrice at [facility]. Patrice informed the Pt came into the organization in December 2019. Patrice stated he came with a nephew by the name of Destin Sorensen. Patrice stated the Pt left the phone number of [phone] as a contact number and [address] as a home address. Patrice also informed the Pt reported recieving services from [facility].
--- NOTE | 2020-06-15 17:38 | NUR ---
DANIEL called phone number recieved by Patrice that Pt gave as a contact number [phone]. The phone number belongs to Kun Sorensen who confirmed he knows the Pt and is the Pt's great nephew. Kun informed he had not seen the Pt in a few weeks and expressed he was happy to know the Pt was safe. Kun informed the [address] [place] [address] address is where he lives with his mother. Kun stated that the Pt does use his address and sometimes stays with them. DANIEL gave and update on the Pt and informed Kun about the guardianship. Kun wanted to know if he could be the Pt's guardian. DANIEL explained the process and encouraged and legal fees that may be associated with the process. Kun stated that he would not be able to afford an regulatory attorney to start a guardianship. DANIEL inquired about other family members. Kun stated he did not know of any other family that would be interested. Kun did provide the contact information for Gil Velázquez [phone] a family member who may be intrested in the Pt's care. Kun informed the Pt had a dx of Depression, Schizophrenia, and Bi-polar. Kun stated he would like to have information and updates on the Pt if possible. DANIEL will continue to follow
--- NOTE | 2020-06-15 18:55 | NUR ---
patient has been listless and non verbal. very thin and emancipated - had morning medications crused in yogurt. must push fluids per dr. muhammad but dont force. looking into hospice. did not eat dinner - non responsive when addressed. incontinent of stool and bladder. non ambulatory - mechanical altered ground.
[2020-06-15 19:49] VITALS: BP 119/52
--- NOTE | 2020-06-16 04:11 | NUR ---
ASSUMED CARE ON 06/15/20 @ 19:00, IN BED AWAKENS AND ALLOWS ASSESSMENT, HRRR, RESPIRATIONS CLEAR BILAT, TAKES MEDICATION CRUSHED IN YOGART, WHICH HE SEEMS TO ENJOY, EATING THE ENTIRE SERVING. DRINKS 2 OZ OF WATER WITH OUT DIFFICULTY. INCONTINENT OF URINE, INCONTINENT CARE PROVIDED. SLEEPS WITH EYES CLOSED, RESPIRATIONS EVEN AND UNLABORED. WILL CONTINUE TO MONITOR FOR SAFETY AND COMFORT PER UNIT POLICY.
[2020-06-16 04:52] VITALS: BP 119/52
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
[2020-06-16 09:13] VITALS: BP 100/61
--- NOTE | 2020-06-16 12:40 | NUR ---
DANIEL set up a video visit via zoom with Pt's nephew Destin Sorensen. Destin was visit with the Pt and observe the Pt. Pt was unresponsive to his name being called several time in and effort to get him to participate. DANIEL also talked to Destin about Pt needing hospice. DANIEL talked to Destin about having the Pt sent to his home [facility] Hosp[facility]. Destin stated he did not have the space to accomodate a hospital bed in his apartment. Destin stated he would call other family and friend to see if anyone would be willing to accept the Pt. Estrada asked for a call back today at 1630. DANIEL will continue to follow up
--- NOTE | 2020-06-16 17:04 | NUR ---
DANIEL called Destin Sorensen, per his request, in order to talk about possible family who would allow Pt to come to their house on hospice. Destin did not answer. DANIEL left a message for a call back on the matter.
--- NOTE | 2020-06-16 18:59 | NUR ---
HAS BEEN IN BED RESTING QUIETLY MAJORITY OF SHIFT-DID GET UP IN GERICHAIR BRIEFLY FOR LUNCH BUT APPEARED TO HAVE INCREASED RESTLESSNESS,DISCOMFORT WHEN SITTING UP AEB MOANING SOFTLY AND FACIAL GRIMACING-IS NON-VERBAL BUT WILL NOD HEAD YES OR NO TO QUESTIONS ASKED. IS ON PUREED DIET WITH NECTAR THICK LIQUIDS AND DOES TAKE PUDDING,ICE CREAM SOFT FOOD VERY WELL-ATE APPROX 50 PERCENT OF MEALS TODAY WITH FEEDING-TOTAL CARE UNABLE TO COMPLETE ANY ADLS FOR SELF. REPOSITIONED Q 2 HOURS -SKIN IS REDDENED TO [facility] BUT NO OPEN AREAS NOTED.PERINEAL CARE PROVIDED.
--- NOTE | 2020-06-16 19:41 | NUR ---
NOTED TO HAVE APPROX DIME SIZE OPEN AREA SLIGHLTY LEFT OF ANUS-APPEARS EXCORIATED D/T DIARRHEA STOOL X1 TODAY. AREA CLEANSED WITH NORMAL SALINE AND BORDER FOAM ADHESIVE APPLIED-POOR ADHESION D/T PROXIMITY TO ANUS AND INCONTINENCE OF BOWEL AND BLADDER-REPOSITIONED ON LEFT SIDE-
--- NOTE | 2020-06-16 19:47 | NUR ---
TREATMENT PLAN UPDATED TO INCLUDE IMPAIRED SKIN INTEGRITY-REPORT GIVEN TO ONCOMING SHIFT TO MONITOR.
[2020-06-16 20:54] VITALS: BP 83/56
--- NOTE | 2020-06-17 03:28 | NUR ---
progress pt vss. alert but no verbal response and not able to follow commands. reposioned q2hrs small area of breakdon on right buttock covered with a small mepilex dressing.repositioned q2 to 3 hours. sponge bath given after pt was incontinent in bed pericare, bath and bedding change repositioned q 2 hours as ordered tolerating well.
[2020-06-17 09:59] VITALS: BP 121/52
[2020-06-17 10:17] VITALS: BP 121/52
[2020-06-17] MEDS ORDERED: LORAZEPAM I2 MG/1 M2 PO (13:32)
[2020-06-17] MEDS ORDERED: MSL20MG/ML SUBLING (13:32)
[2020-06-17] MEDS ORDERED: Atropine 1% Eye Drop SUBLING (13:32)
[2020-06-17] MEDS ORDERED: HALOPERIDOL 1 MG1 MG PO (13:32)
[2020-06-17] MEDS ORDERED: TYLENOL325 MG PO (13:32)
[2020-06-17] MEDS ORDERED: EXTRA STRENGTH85 GM TOP (13:32)
[2020-06-17] MEDS ORDERED: MAG-AL PLUS SUS30 ML PO (13:33)
[2020-06-17] MEDS ORDERED: ZOFRAN4 MG PO (13:33)
[2020-06-17] MEDS ORDERED: MILK OF MA2400 MG/11 PO (13:33)
[2020-06-17] MEDS ORDERED: CEPACOL SORE T1 EAC7 PO (13:33)
--- NOTE | 2020-06-17 13:51 | NUR ---
ACCEPTED CARE OF PT FROM 7P-TO 7AM SHIFT. PT IS IN BED WITH HOB UP. PT HAS EYES OPEN BUT WONT FOLLOW TO COMMAND. FREQ ORAL CARE GIVEN. PT FED BY STAFF IN BED IS ON GROUND MEAT WITH THICKENED LIQUIDS. TAKES ONLY A FEW BITES OF BREAKFAST BUT AT LUNCH ATE 100% IS FED BY STAFF. SWALLOWS WELL. NO VERBAL COMMUNICATION.
--- NOTE | 2020-06-17 15:08 | NUR ---
Order obtained to d/c patient to Med Surg, Dr. Davis consulting, diagnosis of comfort care. Highway Engineer notified. Patient to be admitted to room 461 on 4W. Report called to SUPRIYA Jones. DANIEL Gar, notified ileana Sorensen. Patient transported via hospital bed with all belongings.
--- NOTE | 2020-06-17 16:06 | NUR ---
DANIEL called Destin Sorensen, Pt's nephew [phone], to inform the Pt has been moved to the SICU 2nd floor. Destin asked if Pt had his ID or card that Pt recieves his SSI on. DANIEL informed that those items were not listed on the Pt's inventory sheet at admissions. Destin stated he would like to continue to get updates. DANIEL will continue to follow Pt.
== END 2020-06-17 15:13 | disposition short-term general hospital (02) | DRG 884 ==
LOC: SBH
PROVIDERS: ADMIT Psychiatry & Neurology Psychiatry; ATTEND Psychiatry & Neurology Psychiatry
DX: F03.91 Unspecified dementia, unspecified severity, with behavioral disturbance (principal); E43 Unspecified severe protein-calorie malnutrition; N18.30 Chronic kidney disease, stage 3 unspecified; B19.20 Unspecified viral hepatitis C without hepatic coma; I50.23 Acute on chronic systolic (congestive) heart failure; J96.01 Acute respiratory failure with hypoxia; F23 Brief psychotic disorder; Z68.1 Body mass index [BMI] 19.9 or less, adult; F19.10 Other psychoactive substance abuse, uncomplicated; I25.10 Atherosclerotic heart disease of native coronary artery without angina pectoris; R74.01 Elevation of levels of liver transaminase levels; Z20.828 Contact with and (suspected) exposure to other viral communicable diseases
CPT/HCPCS: 10880

== ENCOUNTER 2020-06-17 14:45 | Inpatient (IN) | payer OTHER ==
[~2020-06-17] VITALS: Ht 177.8 cm; Wt 53.0 kg
[~2020-06-17 14:45] MED LIST changes: +Atropine 1% Eye Drop SUBLING; +CEPACOL SORE T1 EAC7 PO; +EXTRA STRENGTH85 GM TOP; +LORAZEPAM I2 MG/1 M2 PO; +MAG-AL PLUS SUS30 ML PO; +MILK OF MA2400 MG/11 PO; +MSL20MG/ML SUBLING; +TYLENOL325 MG PO; +ZOFRAN4 MG PO
[2020-06-17 15:40] VITALS: BP 78/41
--- NOTE | 2020-06-17 15:43 | NUR ---
RECIEVED PATIENT FROM 5S AT APPROX. 1540. BP SOFT, HR LOW. PATIENT ON COMFORT CARE. O2 SAT 89 ON RA BUT TAKES O2 TUBING OFF. LYING QUIETLY IN ROOM W TV ON. AWAKE BUT DISORIENTED. ONLY RESPONDING TO PAIN. WILL CONTINUE TO MONITOR AND PROVIDE COMFORT MEASURES FOR PATIENT
[2020-06-17 19:49] VITALS: BP 112/31
--- NOTE | 2020-06-18 06:35 | NUR ---
PROGRESS PT ADMITTED FROM [address] [place] [address] SATURDAY AFTERNOON, PT NO CODE IS ACTIVELY DYING AND PLACED ON COMFORT CARE. ORAL AND ZULEMA CARE PROVIDED Q2 TO 3 HOURS PT TOLERATES WITH NO DIFFICULTY.VSS, VOIDING X 4 TONIGHT. LOVES THE ORAL SPONGES CHEWING ON THEM WHEN APPLIED SOMETIMES TRIES TO HANDLE HIMSELF. CRYING OUT AT TIMES ONLY IV PAIN MEDICATIONS ORDERED, REQUESTED SOME SUBLINGUIL ROXICODONE DAY SHIFT PROVIDER TO ENTER ORDER. 0.5 MG OF ATIVAN GIVEN SL PT RESTED MORE COMFORTABLY AFTER GIVEN ATIVAN. CONTINUE POC.
[2020-06-18 08:30] VITALS: BP 100/66
[2020-06-18 20:05] VITALS: BP 124/63
--- NOTE | 2020-06-18 23:49 | NUR ---
PATIENT WAS TRANSFERRED FROM AT 1930 VIA BED WITH RN (LINCOLN). RESTING QUIETLY. NON VERBAL. COMES TO US ON COMFORT CARE. WILL MONITOR.
[2020-06-19 02:15] VITALS: BP 146/91
--- NOTE | 2020-06-19 04:09 | NUR ---
PATIENT WAS TRANSFERRED FROM AT BEGINNING OF SHIFT. ANXIOUS PERIODICALLY DURING THE NIGHT. PATIENT REMAINS ON COMFORT CARE AND NPO. INCONTINENT OF URINE DURING THE NIGHT. MEDICATED X2 WITH ATIVAN FOR RESTLESSNESS. RESTING AT TIME OF NOTE. WILL MONITOR.
[2020-06-19 07:35] VITALS: BP 117/73
[2020-06-19 16:31] VITALS: BP 107/64
--- NOTE | 2020-06-19 17:21 | NUR ---
PT ASSESSED AT START OF SHIFT. EYES OPEN MUCH OF THE DAY W/ SOME INTERMITTENT SOUNDS. CALM BUT UNABLE TO FOLLOW COMMANDS. VSS. INCONTINENT TWICE OF LARGE AMT URINE. SKIN COOL TO TOUCH. MOUTH SWABBED FOR COMFORT.
[2020-06-19 19:05] VITALS: BP 153/102
[2020-06-19 23:06] VITALS: BP 119/68
--- NOTE | 2020-06-20 02:49 | NUR ---
ASSESSED AT START OF SHIFT. PT RESTING IN BED. ASLEEP. 100% ON RA. PT ON COMFORT CARE. REPOSITIONED FOR COMFORT. FALL PREC IN PLACE. PT INCONTINENT OF URINE. WILL CONT WITH POC TILL EOS.
--- NOTE | 2020-06-20 08:14 | NUR ---
ASSUMED CARE OF PATIENT WHO IS RESTING IN BED TV ON PT IS NONVERBAL. NPO MOUTH AND LIP CARE DONE. NO S/S PAIN OR RESP DISTRESS AT THIS TIME. PT REMAINS NPO.
[2020-06-20 08:43] VITALS: BP 96/69
--- NOTE | 2020-06-20 08:48 | NUR ---
LATE NOTE: CONSULT [phone] WAS COMPLETED ON 06/17 BY THIS PHOTOGRAPHIC ENLARGER OPERATOR IN [facility] 227 BEFORE BEING TRANSFERRED TO .
[2020-06-20 08:49] VITALS: BP 96/69
--- NOTE | 2020-06-20 10:16 | NUR ---
PATIENT RESING IN BED EYES OPEN NON VERBAL. RESPIRATIONS SHALLOW. MOUTH AND LIP CARE GIVEN
--- NOTE | 2020-06-20 13:42 | NUR ---
CARE TEAM INDICATED THAT IT WOULD BE APPROPRIATE TO HAVE PT EVALUATED FOR POSSIBLE HOSPICE HOUSE ADMISSION. CM CALLED PT'S NEPHAURE RODRIGUEZ THIS AFTERNOON AND HE WAS AGREEABLE WITH REFERRAL BEING SENT FOR POSSIBLE ADMISSION. REFERRAL SENT TO HOSPICE HOUSE. CM TO FOLLOW INDICATED WITH DC PLANNING.
[2020-06-20 19:21] VITALS: BP 106/74
--- NOTE | 2020-06-20 20:37 | NUR ---
THIS NURSE CALLED PATIENT'S NEPHEW MICHAEL MOSES AT [phone] EXPLAINED DECLINE IN PATIENT'S OVERALL CONDITION ASKED HE WANTED TO COME TO HOSPITAL TO SEE PATIENT HE STATED THAT WITH THE COVID HE DID NOT WANT TO COME HE STATED TO CALL WHEN PATIENT EXPIRES ALSO ASKED THIS NURSE TO TELL PATIENT HE WAS THINKING OF HIM AND LOVES HIM.
[2020-06-21 04:06] VITALS: BP 97/61
--- NOTE | 2020-06-21 04:44 | NUR ---
Assumed pt care at 1900.Pt is somnolent, nonverbal with slight hand movements noted when repositioned.VSS.Incontinent of bladder,pericare done as needed. Oral care/repositioning done every 2 hours. Pt remains NPO. Will continue to monitor pt.
[2020-06-21 07:25] VITALS: BP 111/63
--- NOTE | 2020-06-21 07:46 | NUR ---
ASSUMED CARE OF PATIENT HE IS RESTING IN BED SHALLOW RESP. NO S/S AIR HUNGER AT THIS TIME WILL CONT COMFORT CARE.
--- NOTE | 2020-06-21 12:05 | NUR ---
Pt noted to be at high nutritional risk d/t BMI <18.5. However, upon chart review noted pt is actively dying and was admitted for end of life care. No nutritional interventions are planned at this time unless otherwise consulted. RD will remain available.
[2020-06-21 15:35] VITALS: BP 95/65
--- NOTE | 2020-06-21 15:43 | NUR ---
PATIENT RESTING IN ROOM SHALLOW BREATHING. MOUTH CARE GIVEN. TELE MONITOR ON TO MONITOR HEART RATE.
[2020-06-21 19:50] VITALS: BP 84/53
--- NOTE | 2020-06-22 07:17 | NUR ---
assumed care of patient resting in bed no labored breathing at this time.
--- NOTE | 2020-06-22 07:44 | NUR ---
PROGRESS PT ON COMFORT CARE NOT RESPONSIVE BUT HEART RATE IN 70'S TO 80'S RESPIRATIONS SLOWING BUT STILL BREATHING SUFFICIENTLY. ORAL CARE AND REPOSITIONING Q2HR, 1 DOSE OF MORPHINE GIVEN FOR SOME SLIGHT THRASHING PT SETTLED WITHOUT DIFFICULTY.
[2020-06-22 08:00] VITALS: BP 66/37
--- NOTE | 2020-06-22 11:03 | NUR ---
Pt this morning per unit RN and great nephew Destin Sorensen was notified. Sulfonation Equipment Operator spoke with him regarding arrangements and he indicates that family does not have the resources to arrange for burial or cremation for the pt. The [facility] Indigent Cremation application was emailed to him this morning. Support provided. Security and Risk Mngt notified.
--- NOTE | 2020-06-22 12:13 | NUR ---
AT 0955 DR REMY WITH THIS NURSE WENT INTO ROOM 435. PATIENT EXAMINED BY DOCTOR AND THIS NURSE, NO PULSE NO RESPIRATIONS TELE MONITOR SHOWS NO HEART RATE PT AT 09:55 CALLED [employer] OF . CALLED [employer] REFERRAL NUMBER # - [phone] NOT PRATEEKROHANJASMINA. FOOD AND NUTRITION SERVICES SUPERVISOR NOTIFIED PACKET COMPLETED. WILL CLEAN BODY AND PRPARE FOR BAG AND CALL SECURITY, WILL SEND BELONGINGS 1 PAIR JEANS BELT SHOES SHIRT WITH BODY.
--- NOTE | 2020-06-22 13:23 | NUR ---
CALLED SECURITY TO HAVE BODY TAKEN TO [facility] [place].
--- NOTE | 2020-06-22 13:36 | NUR ---
AT THIS TIME SECURITY HERE TO TAKE BODY AND BELONGINGS [place] [facility] [place]
== END 2020-06-22 13:35 | DRG 291 ==
LOC: 4W 14:45 → 4S 17:32 → 4W 17:32 → 4S 06-18 19:37
PROVIDERS: ADMIT Internal Medicine; ATTEND Internal Medicine
DX: I50.23 Acute on chronic systolic (congestive) heart failure (principal); E43 Unspecified severe protein-calorie malnutrition; J96.01 Acute respiratory failure with hypoxia; Z68.1 Body mass index [BMI] 19.9 or less, adult; F03.91 Unspecified dementia, unspecified severity, with behavioral disturbance; I42.8 Other cardiomyopathies; F19.11 Other psychoactive substance abuse, in remission; R74.01 Elevation of levels of liver transaminase levels; F29 Unspecified psychosis not due to a substance or known physiological condition; I25.10 Atherosclerotic heart disease of native coronary artery without angina pectoris; N18.30 Chronic kidney disease, stage 3 unspecified; Z51.5 Encounter for palliative care; Z79.899 Other long term (current) drug therapy
CPT/HCPCS: 10047; 10102